=== PATIENT | female | born 1950 | race Caucasian/White ===

== ENCOUNTER 2017-07-04 21:55 | Inpatient (IN) | payer MEDICARE, OTHER ==
[~2017-07-04] VITALS: Ht 154.9 cm; Wt 100.2 kg
--- NOTE | 2017-07-04 23:10 | NUR ---
TO BED 2 A 67YO FEMALE PT JUAN C FROM [facility] PT C/O WEAKNESS AND DIZZYNESS X 1 DAY. UPON ARRIVAL, PATIENT IS AAOX3, NAD NOTED. VSS. BREATHING EVEN AND UNLABORED. NONDIAPHORETIC. GOWNED. COMFORT MEASURES RENDERED.
[2017-07-04 23:44] LABS: EOSINOPHILS % (AUTO) 0.2 % (0.0-6.0); HEMATOCRIT 42 % (33-45); HEMOGLOBIN 13.7 g/dL (11.5-14.8); LYMPHOCYTES # (AUTO) 0.7 /CMM (0.8-4.8); LYMPHOCYTES % (AUTO) 2.8 % (20.0-44.0); MEAN CORPUSCULAR HEMOGLOBIN 29 PG (26.0-33.0); MEAN CORPUSCULAR HGB CONC 33 g/dl (31.0-36.0); MEAN CORPUSCULAR VOLUME 89 fL (82-100); MONOCYTES # (AUTO) 2.7 /CMM (0.1-1.30); MONOCYTES % (AUTO) 10.5 % (2.0-12.0); NEUTROPHILS # (AUTO) 21.9 /CMM (1.8-8.9); NEUTROPHILS % (AUTO) 86.5 % (43.0-81.0); PLATELET COUNT (AUTO) 86 /CMM (150-450); RDW COEFFICIENT OF VARIATION 16.8 (11.5-15.0); RED BLOOD CELL COUNT(AUTO) 4.66 MIL/uL (4.0-5.2); WHITE BLOOD COUNT (AUTO) 25.3 K/uL (4.3-11.0)
[2017-07-04 23:57] LABS: ALANINE AMINOTRANSFERASE 38 U/L (12-78); ALBUMIN 2.4 g/dL (3.4-5.0); ALKALINE PHOSPHATASE 109 U/L (46-116); ASPARTATE AMINOTRANSFERASE 21 U/L (15-37); BILIRUBIN,DIRECT 0.1 mg/dL (0.0-0.2); BILIRUBIN,TOTAL 0.6 mg/dL (0.2-1.0); CALCIUM, SERUM 8.9 mg/dL (8.5-10.1); CARBON DIOXIDE 26 mmol/L (21-32); CHLORIDE 100 mmol/L (98-107); CREATININE 0.5 mg/dL (0.6-1.3); GLUCOSE 251 mg/dL (74-106); LIPASE 75 U/L (73-393); POTASSIUM 3.9 mmol/L (3.5-5.1); SODIUM SERUM 133 mmol/L (136-145); TOTAL PROTEIN, SERUM 5.8 g/dL (6.4-8.2); UREA NITROGEN, BLOOD 21 mg/dL (7-18)
[2017-07-05] MEDS ORDERED: MORPHINE SULFATE INJ 2 MG/ML DISP.SYRIN IV ONE
[2017-07-05 00:13] LABS: BAND % (MANUAL) 3 % (0.0-5.0); LYMPHOCYTES % (MANUAL) 5 % (16-48); MONOCYTES % (MANUAL) 5 % (0-11.0); NEUTROPHILS % (MANUAL) 87 (42-76)
[2017-07-05 00:21] LABS: TROPONIN I < 0.017 ng/mL (0.00-0.056)
[2017-07-05 01:00] LABS: INR 0.85 (0.87-1.13); PROTHROMBIN TIME 8.8 SECS (9.5-12.7)
[2017-07-05 01:00] LABS: APPEARANCE,URINE CLEAR (CLEAR); BILIRUBIN,URINE NEGATIVE (NEGATIVE); BLOOD, URINE NEGATIVE Ery/uL (NEGATIVE); COLOR,URINE YELLOW (YELLOW); KETONES,URINE TRACE (NEGATIVE); LEUKOCYTE ESTERASE ,URINE 2+ (NEGATIVE); NITRITE, URINE NEGATIVE (NEGATIVE); PROTEIN,URINE TRACE mg/dl (NEGATIVE); UGLUCOSE NEGATIVE (NEGATIVE)
[2017-07-05] MEDS ORDERED: CEFTRIAXONE 1GM BAG (ER ONLY) 1 GM/50 ML PIGGYBACK IV ONE (01:00)
[2017-07-05] MEDS ORDERED: MORPHINE SULFATE INJ 10 MG/ML DISP.SYRIN ONE (01:02)
[2017-07-05] MEDS ORDERED: CEFTRIAXONE 1GM BAG (ER ONLY) 50 ML IV ONE (01:02)
[2017-07-05 01:26] LABS: BACTERIA,URINE None seen /HPF (None Seen); RBC,URINE NONE SEEN /HPF (0-2); SQUAMOUS EPITHELIAL CELL,UR Few /HPF (None Seen)
[2017-07-05] MEDS ORDERED: IV NS 0.9% 1,000 ML BAG IV ONE (01:30)
--- NOTE | 2017-07-05 01:30 | NUR ---
STARTED A SALINE LOCK ON THE LEFT WRIST G22.
[2017-07-05 01:46] LABS: ALBUMIN 2.4 g/dL (3.4-5.0); BILIRUBIN,DIRECT 0.1 mg/dL (0.0-0.2); BILIRUBIN,TOTAL 0.5 mg/dL (0.2-1.0); TOTAL PROTEIN, SERUM 5.7 g/dL (6.4-8.2)
--- NOTE | 2017-07-05 02:07 | NUR ---
Report given to Jessica for tele admisison and yandel.
--- NOTE | 2017-07-05 02:22 | NUR ---
Transferred patient to [facility] floor no incident noted.
[2017-07-05 02:25] VITALS: BP 115/70
[2017-07-05 02:30] VITALS: BP 115/70
--- NOTE | 2017-07-05 02:30 | NUR ---
RN NOTES 0225 NEW ADMISSION FROM ER, TRANSPORTED VIA GURNEY, ACCOMPANIED BY RN, ALERT AND COHERENTX4,ON ROOM AIR,ORIENTED TO UNIT AND STAFF,FALL,SAFETY AND ASPIRATION PRECAUTION OBSERVED, BED BATH RENDERED IMMEDIATELY, BODY ASSESSMENT DONE, MULTIPLE SKIN DISCOLORATION AND REDNESS NOTED ON THE FRONTAL AND BACK AREA, UNDER RIGHT AND LEFT BREAST, RIGHT AND LEFT INGUINAL AREA,DISCOLORATION ON THE MIDBACK, PER PATIENT SHE HAD FALL THE OTHER DAY WAS BROUGHT TO [facility] AND SEND BACK TO [facility],PATIENT HAD DIZZINESS AND WEAKNESSX1 DAY AND BROUGHT TO [facility],IVF OF NS AT 60 ML/HR ONGOING IN THE LEFT WRIST G-22; NO BP AND BLOOD EXTRACTION ON THE RIGHT ARM.MEDICATION RECON DONE,KEPT ON CLOSE WATCH.BED LOW AND LOCKED, CALL LIGHT WITHIN EASY REACH.
[2017-07-05] MEDS ORDERED: ACETAMINOPHEN 325 MG TABLET PO PRN (03:30)
[2017-07-05] MEDS ORDERED: IV NS 0.9% 1,000 ML BAG IV PRN (03:30)
[2017-07-05] MEDS ORDERED: DEXTROSE 50%-WATER 50 ML DISP.SYRIN IV PRN (03:30)
[2017-07-05] MEDS ORDERED: ENOXAPARIN SODIUM 40 MG/0.4 ML DISP.SYRIN SQ SCH ×2 (03:30→08:32)
[2017-07-05] MEDS ORDERED: HYDROCODONE/APAP 5/325MG 1 EACH TABLET PO PRN (03:30)
--- NOTE | 2017-07-05 03:30 | NUR ---
RN NOTES: PLATELET=86,CHARGE NURSE NOTIFIED,LOVENOX NOT GIVEN WILL FOLLOW UP WITH MD.
[2017-07-05] MEDS ORDERED: VENTOLIN INH (03:57)
[2017-07-05] MEDS ORDERED: BYSTOLIC PO (03:57)
[2017-07-05] MEDS ORDERED: FISH OIL PO (03:57)
[2017-07-05] MEDS ORDERED: HYDROCODONE/APAP 5/325MG 1 EACH TABLET ONE (06:16)
[2017-07-05] MEDS: HYDROCODONE/APAP 5/325MG 1 EACH TABLET PO PRN ×2 (06:19→17:44)
--- NOTE | 2017-07-05 06:24 | NUR ---
RN NOTES: ABLE TO SLEEP AT SHRT INTERVAL, AWAKE, DIAPER CHANGE, COMPLAINED OF HEADACHE 7/10. NON PHARMACOLOGIC INTERVENTION RENDERED, WARM BLANKET GIVEN, DIM LIGHT, PRN PAIN MEDICATION GIVEN PER REQUEST.WILL CONTINUE TO MONITOR.
[2017-07-05] MEDS: BLOOD SUGAR DIAGNOSTIC 1 EACH STRIP IN SCH ×4 (06:27→21:54)
--- NOTE | 2017-07-05 07:00 | NUR ---
RN NOTES: ASLEEP AT SHORT INTERVALS, ENDORSED TO NEXT SHIFT FOR CONTINUITY OF CARE.
[2017-07-05 08:00] VITALS: BP 103/74
--- NOTE | 2017-07-05 08:06 | NUR ---
MS RN NOTES RECEIVED PATIENT IN BED, AWAKE. A/O X3. ON ROOM AIR, TOLERATING WELL. APPEARS COMFORTABLE IN BED, IVF NS INFUSING AT 60ML/HR, TOLERATING WELL. CALL LIGHT WITHIN IN REACH. WILL CONT TO MONITOR.
[2017-07-05] MEDS: METFORMIN 500 MG TABLET PO SCH ×2 (08:27→16:39)
[2017-07-05] MEDS: FOLIC ACID 1 MG TABLET PO SCH (08:28)
[2017-07-05] MEDS: BENZONATATE 100 MG CAPSULE PO SCH ×3 (08:28→16:39)
[2017-07-05] MEDS: ANASTROZOLE 1 MG TABLET PO SCH (08:28)
[2017-07-05] MEDS: ASPIRIN 81 MG TAB.CHEW PO SCH (08:28)
[2017-07-05] MEDS: NATEGLINIDE 60 MG TABLET PO SCH ×3 (08:28→16:39)
[2017-07-05] MEDS: CHOLECALCIFEROL 1,000 UNIT TABLET (VIT D3) PO SCH (08:28)
[2017-07-05] MEDS: FAMOTIDINE (20 MG) 20 MG TABLET PO SCH (08:28)
[2017-07-05] MEDS: AMLODIPINE BESYLATE 10 MG TABLET PO SCH (08:29)
[2017-07-05] MEDS: ASCORBIC ACID 500 MG TABLET PO SCH (08:29)
[2017-07-05] MEDS ORDERED: IV NS 0.9% 1,000 ML IV PRN (08:30)
[2017-07-05] MEDS ORDERED: ALBUTEROL FS 2.5 MG/3 ML VIAL.NEB NEB PRN (09:30)
[2017-07-05] MEDS: VITAMIN E 400 UNIT CAPSULE PO SCH (09:37)
[2017-07-05] MEDS: ENOXAPARIN SODIUM 40 MG/0.4 ML DISP.SYRIN SQ SCH (11:26)
--- NOTE | 2017-07-05 11:32 | NUR ---
NO LABS TODAY. 07/04/[address] MCQUEEN WAS NOTIFIED BY [facility] AND OK TO GIVE LOVENOX DOSE TODAY 07/05/17.
[2017-07-05] MEDS: INSULIN ASPART HUMALOG/NOVOLOG 100 UNIT/ML CARTRIDGE SQ PRN ×3 (12:19→22:06)
--- NOTE | 2017-07-05 14:25 | NUR ---
REDNESS ON SACROCOCCYX AREA, PATIENT IS ABLE TO TURN AND REPOSITION WITH EXTENSIVE ASSIST. SEEN BY DR. MCQUEEN TODAY, INFORMED MD REGARDING REDNESS ON SACROCOCCYX AREA, ORDERED REMEDY ZGUARD TO PROTECT SKIN.
[2017-07-05 16:00] VITALS: BP_SYST 110; BP_DIAS 45; BP_DIAS 85
[2017-07-05] MEDS: Z GUARD REMEDY 2 OZ OINT TP SCH (16:43)
--- NOTE | 2017-07-05 18:05 | NUR ---
MS RN CLOSING NOTES PATIENT SITTING UP IN BED, HAS GOOD APPETITE, CONSUMED 100% OF HER MEAL. ON ANTIBIOTIC WITH NO ADVERSE SIDE EFFECT, AFEBRILE. C/O LOWER ABDOMINAL PAIN /, MEDICATED WITH NORCO 5/325MG 1 TAB PO PRN, EFFECTIVE. TURN AND REPOSITION IN BED. CONT HOSP. CALL LIGHT WITHIN REACH. WILL ENDORSE TO AUTO HEATER MECHANIC RN FOR CONTINUITY OF CARE.
--- NOTE | 2017-07-05 19:05 | NUR ---
MS RN OPENING NOTES: RECEIVED PT SITTING UP IN BED COMFORTABLY. NO SOB NOTED. NO S/S OF DISTRESS NOTED AT THIS TIME. PT HAS IV ON L HAND 22G AND IS BEING INFUSED WITH NS AT 60ML/HR. CALL LIGHT WITHIN PT'S REACH. BED KEPT IN LOW, LOCKED POSITION, AND SIDE RAILS X 2UP. WILL CONTINUE TO MONITOR PT.
[2017-07-05 20:00] VITALS: BP 123/62
[2017-07-05] MEDS: INSULIN DETEMIR 100 UNIT/ML CARTRIDGE SQ SCH (20:16)
[2017-07-05] MEDS: ATORVASTATIN 10 MG TABLET PO SCH (21:54)
[2017-07-05] MEDS: MONTELUKAST SODIUM (10MG) 10 MG TABLET PO SCH (21:54)
[2017-07-05] MEDS: CEFTRIAXONE 1 G in IV D5W 50 ML IV SCH (22:10)
[2017-07-06] MEDS: BLOOD SUGAR DIAGNOSTIC 1 EACH STRIP IN SCH ×4 (06:06→21:52)
[2017-07-06] MEDS: INSULIN ASPART HUMALOG/NOVOLOG 100 UNIT/ML CARTRIDGE SQ PRN ×4 (06:51→22:04)
--- NOTE | 2017-07-06 06:52 | NUR ---
MS RN NOTES: BLOOD SUGAR THIS AM WAS 119. NO INSULIN WAS GIVEN. WILL CONTINUE TO MONITOR PT.
--- NOTE | 2017-07-06 07:25 | NUR ---
MS RN CLOSING NOTES: ALL NEEDS WERE ATTENDED AND ANTICIPATED FOR. PT IS SLEEPING IN BED COMFORTABLY. NO SOB NOTED. NO S/S OF DISTRESS NOTED AT THIS TIME. PT HAS IV ON L HAND 22G AND IS BEING INFUSED WITH NS AT 60ML/HR. CALL LIGHT WITHIN PT'S REACH. BED KEPT IN LOW, LOCKED POSITION, AND SIDE RAILS X 2UP. ENDORSED TO AM NURSE FOR PHUONG.
--- NOTE | 2017-07-06 07:30 | NUR ---
MS RN NOTES RECEIVED PATIENT IN BED, AWAKE. A/O X3, APPEARS ANXIOUS. ON ROOM AIR, BREATHING EVEN AND NON LABORED, NO SOB. IV IN LEFT WRIST PATENT AND INTACT, IVF NS INFUSING AT 60ML/HR, TOLERATING WELL. CALL LIGHT WITHIN IN REACH. WILL CONT TO MONITOR.
[2017-07-06 08:00] VITALS: BP 123/63
[2017-07-06] MEDS ORDERED: CHOL10002 PO (08:19)
[2017-07-06] MEDS ORDERED: METF500T4 PO (08:19)
[2017-07-06] MEDS ORDERED: ACET-868 PO (08:19)
[2017-07-06] MEDS ORDERED: [UNRECOGNIZED DRUG - CODE] PO (08:19)
[2017-07-06] MEDS ORDERED: ASCO500T9 PO (08:19)
[2017-07-06] MEDS ORDERED: MONT10TA22 PO (08:19)
[2017-07-06] MEDS ORDERED: NEBI5TAB8 PO (08:19)
[2017-07-06] MEDS ORDERED: HYDR-552 PO (08:19)
[2017-07-06] MEDS ORDERED: ALBU18HF2 INH (08:19)
[2017-07-06] MEDS ORDERED: AMLO10TA2 PO (08:19)
[2017-07-06] MEDS ORDERED: NATE60TA4 PO (08:19)
[2017-07-06] MEDS ORDERED: FAMO20TA8 PO (08:19)
[2017-07-06] MEDS ORDERED: OMEG1CAP PO (08:19)
[2017-07-06] MEDS ORDERED: FOLI1TAB16 PO (08:19)
[2017-07-06] MEDS ORDERED: BENZ-20 PO (08:19)
[2017-07-06] MEDS ORDERED: ASPI-991 PO (08:19)
[2017-07-06] MEDS ORDERED: ANAS1TAB8 PO (08:19)
[2017-07-06 08:58] LABS: EOSINOPHILS % (AUTO) 0.2 % (0.0-6.0); HEMATOCRIT 39 % (33-45); HEMOGLOBIN 12.8 g/dL (11.5-14.8); LYMPHOCYTES # (AUTO) 0.4 /CMM (0.8-4.8); LYMPHOCYTES % (AUTO) 2.5 % (20.0-44.0); MEAN CORPUSCULAR HEMOGLOBIN 30 PG (26.0-33.0); MEAN CORPUSCULAR HGB CONC 33 g/dl (31.0-36.0); MEAN CORPUSCULAR VOLUME 90 fL (82-100); MONOCYTES # (AUTO) 0.1 /CMM (0.1-1.30); MONOCYTES % (AUTO) 0.7 % (2.0-12.0); NEUTROPHILS # (AUTO) 14.9 /CMM (1.8-8.9); NEUTROPHILS % (AUTO) 96.6 % (43.0-81.0); PLATELET COUNT (AUTO) 88 /CMM (150-450); RDW COEFFICIENT OF VARIATION 17.2 (11.5-15.0); WHITE BLOOD COUNT (AUTO) 15.4 K/uL (4.3-11.0)
[2017-07-06] MEDS ORDERED: NEBIVOLOL 5 MG PO SCH (09:00)
[2017-07-06 09:32] LABS: CALCIUM, SERUM 8.3 mg/dL (8.5-10.1); CREATININE 0.4 mg/dL (0.6-1.3); POTASSIUM 3.7 mmol/L (3.5-5.1)
[2017-07-06] MEDS: CHOLECALCIFEROL 1,000 UNIT TABLET (VIT D3) PO SCH (09:48)
[2017-07-06] MEDS: VITAMIN E 400 UNIT CAPSULE PO SCH (09:48)
[2017-07-06] MEDS: ASCORBIC ACID 500 MG TABLET PO SCH (09:48)
[2017-07-06] MEDS: ANASTROZOLE 1 MG TABLET PO SCH (09:48)
[2017-07-06] MEDS: METFORMIN 500 MG TABLET PO SCH ×2 (09:48→17:38)
[2017-07-06] MEDS: AMLODIPINE BESYLATE 10 MG TABLET PO SCH (09:49)
[2017-07-06] MEDS: FOLIC ACID 1 MG TABLET PO SCH (09:49)
[2017-07-06] MEDS: BENZONATATE 100 MG CAPSULE PO SCH ×3 (09:50→17:38)
[2017-07-06] MEDS: FAMOTIDINE (20 MG) 20 MG TABLET PO SCH (09:50)
[2017-07-06] MEDS: ASPIRIN 81 MG TAB.CHEW PO SCH (09:51)
[2017-07-06] MEDS: INSULIN DETEMIR 100 UNIT/ML CARTRIDGE SQ SCH ×2 (10:04→22:03)
[2017-07-06] MEDS: ENOXAPARIN SODIUM 40 MG/0.4 ML DISP.SYRIN SQ SCH (10:05)
[2017-07-06 10:08] LABS: LYMPHOCYTES % (MANUAL) 3 % (16-48); MONOCYTES % (MANUAL) 4 % (0-11.0); NEUTROPHILS % (MANUAL) 93 (42-76)
[2017-07-06] MEDS: Z GUARD REMEDY 2 OZ OINT TP SCH (10:10)
[2017-07-06] MEDS ORDERED: DEXA4TAB2 PO ×2 (11:42)
[2017-07-06] MEDS ORDERED: DEXA1TAB2 PO ×3 (11:42)
--- NOTE | 2017-07-06 12:55 | NUR ---
PER PATIENT SHE IS TAKING STEROIDS MEDICATION AT THE FACILITY. CALLED SPOKE TO DR. MCQUEEN ORDERED TO CONTINUE DECADRON TAPERING DOSE FROM PREVIOUS ORDERS AND CHANGE BYSTOLIC TO CARVEDILOL 6.25MG PO BID, NOTED AND ACKNOWLEDGED. PATIENT MADE AWARE.
[2017-07-06] MEDS: DEXAMETHASONE 4 MG TABLET PO SCH ×2 (14:11→17:38)
--- NOTE | 2017-07-06 14:42 | NUR ---
PATIENT REPORTED STOMACH UPSET, NO C/O NAUSEA OR VOMITING. NOTIFIED DR. MCQUEEN ORDERED PROTONIX 40MG DAILY NOTED AND ACKNOWLEDGED.
[2017-07-06] MEDS: PANTOPRAZOLE 40 MG TABLET.DR PO SCH (15:29)
[2017-07-06] MEDS ORDERED: BENZONATATE 100 MG CAPSULE PO PRN (15:30)
[2017-07-06] MEDS ORDERED: ACETAMINOPHEN 325 MG TABLET PO PRN (15:30)
[2017-07-06] MEDS ORDERED: HYDROCODONE/APAP 5/325MG 1 EACH TABLET PO PRN (15:30)
[2017-07-06] MEDS: HYDROCODONE/APAP 5/325MG 1 EACH TABLET PO PRN (15:32)
[2017-07-06 16:00] VITALS: BP 112/60
[2017-07-06] MEDS ORDERED: METFORMIN 500 MG TABLET PO SCH (17:00)
[2017-07-06] MEDS ORDERED: FAMOTIDINE (20 MG) 20 MG TABLET PO SCH (17:00)
[2017-07-06] MEDS ORDERED: ALBUTEROL SULFATE 8 GM HFA.AER.AD NEB SCH (17:00)
--- NOTE | 2017-07-06 18:41 | NUR ---
MS RN CLOSING NOTES PATIENT IN BED, A/O X4. IVF WAS STOP TODAY ORDERED. IV IN LEFT WRIST G22 NOTED LEAKING, REMOVED AND COVERED WITH GAUZE. WILL RE INSERT IV. TURN AND REPOSITION IN BED, BLOOD SUGAR MONITORED. LAB IN AM ORDERED. CONT HOSP. CALL LIGHT WITHIN REACH. WILL ENDORSE TO STAFF RADIOGRAPHER RN FOR CONTINUITY OF CARE.
--- NOTE | 2017-07-06 19:40 | NUR ---
MS RN NOTE: PATIENT RESTING IN BED, NO ACUTE DISTRESS NOTED. BREATHING EVEN AND UNLABORED, NO SOB NOTED. IV TO LEFT HAND LEAKING AND REMOVED, TO START A NEW IV. NO S/S OF HYPER/HYPOGLYCEMIA NOTED. BED LOCKED AND IN LOWEST POSITION, CALL LIGHT IN REACH. WILL CONTINUE TO MONITOR.
[2017-07-06 20:00] VITALS: BP 113/61
[2017-07-06] MEDS: MONTELUKAST SODIUM (10MG) 10 MG TABLET PO SCH (21:51)
[2017-07-06] MEDS: ATORVASTATIN 10 MG TABLET PO SCH (21:51)
[2017-07-06] MEDS: CARVEDILOL 6.25 MG TABLET PO SCH (21:51)
[2017-07-06] MEDS ORDERED: MONTELUKAST SODIUM (10MG) 10 MG TABLET PO SCH (22:00)
--- NOTE | 2017-07-06 23:00 | NUR ---
MS RN NOTE: NEW IV STARTED TO LFA #20 WITH GOOD BLOOD RETURN, WILL CONTINUE TO MONITOR.
[2017-07-06] MEDS: CEFTRIAXONE 1 G in IV D5W 50 ML IV SCH (23:27)
--- NOTE | 2017-07-07 06:10 | NUR ---
MS RN NOTE: PATIENT RESTING IN BED, NO ACUTE DISTRESS NOTED. BREATHING EVEN AND UNLABORED, NO SOB NOTED. IV TO LFA IN PLACE. NO S/S OF HYPER/HYPOGLYCEMIA NOTED. BED LOCKED AND IN LOWEST POSITION, CALL LIGHT IN REACH. WILL ENDORSE TO DAY NURSE TO CONTINUE WITH PLAN OF CARE.
[2017-07-07] MEDS: BLOOD SUGAR DIAGNOSTIC 1 EACH STRIP IN SCH ×4 (07:13→22:33)
[2017-07-07] MEDS: INSULIN ASPART HUMALOG/NOVOLOG 100 UNIT/ML CARTRIDGE SQ PRN ×4 (07:14→22:32)
--- NOTE | 2017-07-07 07:30 | NUR ---
MS RN NOTES RECEIVED PATIENT IN BED, AWAKE. A/OX 4. ON ROOM AIR, TOLERATING WELL, NO SOB. DIAPER CHANGED, KEPT CLEAN AND DRY, MADE COMFORTABLE IN BED. PLACE CALL LIGHT WITHIN REACH. WILL CONT TO MONITOR.
[2017-07-07 08:00] VITALS: BP 128/69
[2017-07-07 08:14] LABS: EOSINOPHILS % (AUTO) 0.1 % (0.0-6.0); HEMATOCRIT 41 % (33-45); HEMOGLOBIN 13.6 g/dL (11.5-14.8); LYMPHOCYTES # (AUTO) 0.7 /CMM (0.8-4.8); LYMPHOCYTES % (AUTO) 5.2 % (20.0-44.0); MEAN CORPUSCULAR HEMOGLOBIN 30 PG (26.0-33.0); MEAN CORPUSCULAR HGB CONC 33 g/dl (31.0-36.0); MEAN CORPUSCULAR VOLUME 90 fL (82-100); MONOCYTES # (AUTO) 0.1 /CMM (0.1-1.30); MONOCYTES % (AUTO) 0.9 % (2.0-12.0); NEUTROPHILS # (AUTO) 13.3 /CMM (1.8-8.9); NEUTROPHILS % (AUTO) 93.8 % (43.0-81.0); PLATELET COUNT (AUTO) 109 /CMM (150-450); RDW COEFFICIENT OF VARIATION 16.5 (11.5-15.0); RED BLOOD CELL COUNT(AUTO) 4.56 MIL/uL (4.0-5.2); WHITE BLOOD COUNT (AUTO) 14.1 K/uL (4.3-11.0)
[2017-07-07] MEDS ORDERED: ASCORBIC ACID 500 MG TABLET PO SCH (09:00)
[2017-07-07] MEDS ORDERED: FOLIC ACID 1 MG TABLET PO SCH (09:00)
[2017-07-07] MEDS ORDERED: AMLODIPINE BESYLATE 10 MG TABLET PO SCH (09:00)
[2017-07-07] MEDS ORDERED: ASPIRIN EC 81 MG TABLET.DR PO SCH (09:00)
[2017-07-07] MEDS ORDERED: ANASTROZOLE 1 MG TABLET PO SCH (09:00)
[2017-07-07] MEDS ORDERED: VITAMIN E 400 UNIT CAPSULE PO SCH (09:00)
[2017-07-07] MEDS ORDERED: CHOLECALCIFEROL 1,000 UNIT TABLET (VIT D3) PO SCH (09:00)
[2017-07-07] MEDS: FOLIC ACID 1 MG TABLET PO SCH (09:26)
[2017-07-07] MEDS: ASPIRIN 81 MG TAB.CHEW PO SCH (09:26)
[2017-07-07] MEDS: CHOLECALCIFEROL 1,000 UNIT TABLET (VIT D3) PO SCH (09:26)
[2017-07-07] MEDS: ANASTROZOLE 1 MG TABLET PO SCH (09:26)
[2017-07-07] MEDS: FAMOTIDINE (20 MG) 20 MG TABLET PO SCH (09:26)
[2017-07-07] MEDS: PANTOPRAZOLE 40 MG TABLET.DR PO SCH (09:26)
[2017-07-07] MEDS: METFORMIN 500 MG TABLET PO SCH ×2 (09:26→17:39)
[2017-07-07] MEDS: ASCORBIC ACID 500 MG TABLET PO SCH (09:26)
[2017-07-07] MEDS: CARVEDILOL 6.25 MG TABLET PO SCH ×3 (09:27→22:42)
[2017-07-07] MEDS: BENZONATATE 100 MG CAPSULE PO SCH ×3 (09:27→17:39)
[2017-07-07] MEDS: DEXAMETHASONE 4 MG TABLET PO SCH (09:27)
[2017-07-07] MEDS: VITAMIN E 400 UNIT CAPSULE PO SCH (09:29)
[2017-07-07] MEDS: Z GUARD REMEDY 2 OZ OINT TP SCH (09:31)
[2017-07-07] MEDS: INSULIN DETEMIR 100 UNIT/ML CARTRIDGE SQ SCH ×2 (09:35→22:31)
--- NOTE | 2017-07-07 10:11 | NUR ---
PATIENT REPORTED CONSTIPATION, INFORMED DR. MCQUEEN, ORDERED SENNA 8.6MG AT BEDTIME AND DULCOLAX SUPP DAILY PRN, PATIENT MADE AWARE.
[2017-07-07] MEDS: ENOXAPARIN SODIUM 40 MG/0.4 ML DISP.SYRIN SQ SCH (10:27)
[2017-07-07] MEDS ORDERED: BISACODYL SUPP (10 MG) 10 MG/SUPP.RECT SUPP.RECT RC PRN (10:30)
--- NOTE | 2017-07-07 10:37 | NUR ---
WOUND CARE CONSULT: PT PRESENTS WITH ABILITY TO ASSIST WITH TURNING AND REPOSITIONING IN BED. PT USING BEDPAN. BRUISES NOTED AND RT 2ND TOE TINY DRY SCAB, PRESENT ON ADMISSION. CURRENT RONI SCORE IS 14. WILL SEE PRN. ALL SKIN PROTECTION MEASURES IN PLACE INCLUDING ISOFLEX LOW AIRLOSS BED. MD IN AGREEMENT WITH PLAN OF CARE.
--- NOTE | 2017-07-07 13:03 | NUR ---
PATIENT AMBULATE WITH PT TODAY, WALK 30 FEET PER PT. PROVIDED BEDSIDE COMMODE, HAD BOWEL MOVEMENT, LARGE AMOUNT AND FORMED, SOFT. DULCOLAX SUPP. EFFECTIVE.
--- NOTE | 2017-07-07 14:55 | NUR ---
PER [facility]INCE/[facility] REC. PROTAT, MTV, AND VIT C DAILY, PATIENT IS ON MALNUTRITION ALERT. NOTIFIED DR. MCQUEEN, AWAITING FOR ORDERS.
[2017-07-07 16:00] VITALS: BP 114/62
[2017-07-07] MEDS: DEXAMETHASONE 1 MG TABLET PO SCH (17:52)
--- NOTE | 2017-07-07 18:44 | NUR ---
MS RN CLOSING NOTES PATIENT IN BED, SITTING UP. CONSUMED >75% OF HER MEAL. RECEIVED PHONE CALL FROM DR. MCQUEEN, DISCUSSED RD RECOMMENDATION WITH MD, TO ADD MVI, VIT C, PROSTAT DAILY TO MEET INCREASE NEEDS HIGH BMI. DR. MCQUEEN DECLINED RD RECOMMENDATIONS AND NO NEW ORDERS AT THIS TIME, CHARGE NURSE INFORMED. IV IN LFA G20 PATENT AND INTACT, FLUSHES WELL. HAD BOWEL MOVEMENT TODAY LARGE AMOUNT, WITH BEDSIDE COMMODE PROVIDED. KEPT CLEAN, DRY AND COMFORTABLE IN BED. PLACE CALL LIGHT WITH IN REACH. CONT HOSP PER MD. WILL ENDORSE TO NIGHT RN FOR PHUONG.
[2017-07-07 20:00] VITALS: BP 119/67
[2017-07-07] MEDS: ATORVASTATIN 10 MG TABLET PO SCH (22:09)
[2017-07-07] MEDS: MONTELUKAST SODIUM (10MG) 10 MG TABLET PO SCH (22:09)
[2017-07-07] MEDS: SENNOSIDES 8.6 MG TABLET PO SCH (22:09)
[2017-07-07] MEDS: CEFTRIAXONE 1 G in IV D5W 50 ML IV SCH (22:11)
--- NOTE | 2017-07-08 05:16 | NUR ---
RN NOTES No significant change in condition during shit. No change in LOC. No c/o pain or discomfort. Accucheck done as ordered, no s/s of hypo/hyperglycemia. Due meds given as ordered, all needs attended. Turned and repositioned as scheduled. Will continue to monitor.
[2017-07-08] MEDS: BLOOD SUGAR DIAGNOSTIC 1 EACH STRIP IN SCH ×4 (06:37→22:16)
[2017-07-08] MEDS: INSULIN ASPART HUMALOG/NOVOLOG 100 UNIT/ML CARTRIDGE SQ PRN ×3 (06:39→22:07)
--- NOTE | 2017-07-08 07:30 | NUR ---
RN MS NOTES PT IN BED, AWAKE, ALERT AND ORIENTED, BREATHING PATTERN NORMAL AND NON LABORED, NO COMPLAINT OF PAIN OR ANY DISCOMFORT, RIGHT ARM PRECAUTION OBSERVED, CALL LIGHT WITHIN REACH, ASSISTED WITH NEEDS.
[2017-07-08 08:00] VITALS: BP 145/68
[2017-07-08] MEDS: ASCORBIC ACID 500 MG TABLET PO SCH (08:36)
[2017-07-08] MEDS: FAMOTIDINE (20 MG) 20 MG TABLET PO SCH (08:36)
[2017-07-08] MEDS: CHOLECALCIFEROL 1,000 UNIT TABLET (VIT D3) PO SCH (08:36)
[2017-07-08] MEDS: DEXAMETHASONE 4 MG TABLET PO SCH (08:36)
[2017-07-08] MEDS: METFORMIN 500 MG TABLET PO SCH ×2 (08:36→16:41)
[2017-07-08] MEDS: PANTOPRAZOLE 40 MG TABLET.DR PO SCH (08:37)
[2017-07-08] MEDS: BENZONATATE 100 MG CAPSULE PO SCH ×3 (08:37→16:41)
[2017-07-08] MEDS: CARVEDILOL 6.25 MG TABLET PO SCH ×2 (08:37→22:04)
[2017-07-08] MEDS: ASPIRIN 81 MG TAB.CHEW PO SCH (08:38)
[2017-07-08] MEDS: FOLIC ACID 1 MG TABLET PO SCH (08:38)
[2017-07-08] MEDS: ENOXAPARIN SODIUM 40 MG/0.4 ML DISP.SYRIN SQ SCH (08:46)
[2017-07-08] MEDS: INSULIN DETEMIR 100 UNIT/ML CARTRIDGE SQ SCH ×2 (08:47→22:06)
[2017-07-08] MEDS: Z GUARD REMEDY 2 OZ OINT TP SCH (08:51)
[2017-07-08] MEDS: VITAMIN E 400 UNIT CAPSULE PO SCH (08:53)
[2017-07-08] MEDS: ANASTROZOLE 1 MG TABLET PO SCH (09:00)
--- NOTE | 2017-07-08 12:00 | NUR ---
RN MS NOTES PT REFUSED INSULIN ADMINISTRATION.
--- NOTE | 2017-07-08 13:00 | NUR ---
RN MS NOTES PT IN BED, RESTING, NO COMPLAINT OF PAIN OR ANY DISCOMFORT, RESPIRATIONS NORMAL AND NOT LABORED, ASSISTED WITH REPOSITIONING AND ADL'S, SEEN BY PHYSICAL THERAPIST, ABLE TO WALK WITH ASSISTANCE WITH A WALKER, NEEDS ATTENDED.
[2017-07-08 16:00] VITALS: BP 139/79
[2017-07-08] MEDS: DEXAMETHASONE 1 MG TABLET PO SCH (17:34)
--- NOTE | 2017-07-08 18:30 | NUR ---
RN MS NOTES PT IN BED, AWAKE, ALERT AND ORIENTED, NO COMPLAINT AT THIS TIME, ASSISTED WITH DINNER, BLOOD SUGAR CHECKED, INSULIN GIVEN ORDERED, PM MEDS GIVEN, ALL NEEDS ATTENDED.
[2017-07-08] MEDS: METRONIDAZOLE 500MG/ NS 100ML 500 MG in PREMIX 1 EA IV SCH (19:43)
--- NOTE | 2017-07-08 19:57 | NUR ---
MS/RN RECEIVE PATIENT AWAKE, ALERT, ORIENTED, FEELS WEAK "i JUST WANT TO REST", THE PATIENT STATED, NO C/O PAIN, NO DISTRESS NOTED. PATIENT REFUSED TO BE TURNED AT THIS TIME. WILL MONITOR.
[2017-07-08 20:00] VITALS: BP 117/66
[2017-07-08] MEDS: MONTELUKAST SODIUM (10MG) 10 MG TABLET PO SCH (22:03)
[2017-07-08] MEDS: ATORVASTATIN 10 MG TABLET PO SCH (22:03)
[2017-07-08] MEDS: SENNOSIDES 8.6 MG TABLET PO SCH (22:04)
[2017-07-08] MEDS: CEFTRIAXONE 1 G in IV D5W 50 ML IV SCH (23:09)
[2017-07-09] MEDS: METRONIDAZOLE 500MG/ NS 100ML 500 MG in PREMIX 1 EA IV SCH ×2 (05:00→13:32)
[2017-07-09] MEDS: INSULIN ASPART HUMALOG/NOVOLOG 100 UNIT/ML CARTRIDGE SQ PRN ×2 (06:34→12:34)
--- NOTE | 2017-07-09 06:43 | NUR ---
MS/RN PATIENT IS AWAKE, ALERT, ORIENTED, COMFORTABLE, NO CHANGE IN CONDITION, HAD AN ON AND OFF SLEEP THE WHOLE SHIFT. ALL NEEDS ATTENDED AT THIS TIME, WILL CONTINUE TO MONITOR.
--- NOTE | 2017-07-09 07:26 | NUR ---
MS RN OPENING NOTES PATIENT IS SLEEPING IN BED IN NO APPARENT DISTRESS. BED IS LOCKED AND LOWERED. BEDSIDE RAILS ARE UP X2. CALL LIGHT IS WITHIN REACH. WILL CONTINUE TO MONITOR.
[2017-07-09] MEDS: BLOOD SUGAR DIAGNOSTIC 1 EACH STRIP IN SCH ×3 (07:30→17:18)
[2017-07-09 08:00] VITALS: BP 121/68
[2017-07-09] MEDS: ENOXAPARIN SODIUM 40 MG/0.4 ML DISP.SYRIN SQ SCH (09:00)
[2017-07-09] MEDS: FOLIC ACID 1 MG TABLET PO SCH (09:01)
[2017-07-09] MEDS: VITAMIN E 400 UNIT CAPSULE PO SCH (09:01)
[2017-07-09] MEDS: METFORMIN 500 MG TABLET PO SCH ×2 (09:01→17:18)
[2017-07-09] MEDS: ASCORBIC ACID 500 MG TABLET PO SCH (09:01)
[2017-07-09] MEDS: ASPIRIN 81 MG TAB.CHEW PO SCH (09:01)
[2017-07-09] MEDS: PANTOPRAZOLE 40 MG TABLET.DR PO SCH (09:02)
[2017-07-09] MEDS: BENZONATATE 100 MG CAPSULE PO SCH ×3 (09:02→17:18)
[2017-07-09] MEDS: ANASTROZOLE 1 MG TABLET PO SCH (09:02)
[2017-07-09] MEDS: DEXAMETHASONE 4 MG TABLET PO SCH (09:02)
[2017-07-09] MEDS: FAMOTIDINE (20 MG) 20 MG TABLET PO SCH (09:03)
[2017-07-09] MEDS: CHOLECALCIFEROL 1,000 UNIT TABLET (VIT D3) PO SCH (09:03)
[2017-07-09] MEDS: CARVEDILOL 6.25 MG TABLET PO SCH (09:03)
[2017-07-09] MEDS: INSULIN DETEMIR 100 UNIT/ML CARTRIDGE SQ SCH (09:22)
[2017-07-09] MEDS: Z GUARD REMEDY 2 OZ OINT TP SCH (09:23)
[2017-07-09 13:55] LABS: CALCIUM, SERUM 8.6 mg/dL (8.5-10.1); CREATININE 0.5 mg/dL (0.6-1.3); POTASSIUM 3.8 mmol/L (3.5-5.1)
[2017-07-09 16:00] VITALS: BP 134/68
[2017-07-09] MEDS: DEXAMETHASONE 1 MG TABLET PO SCH (17:19)
--- NOTE | 2017-07-09 17:23 | NUR ---
NO INSULIN COVERAGE NEEDED. BLOOD SUGAR 128.
--- NOTE | 2017-07-09 19:00 | NUR ---
MS RN CLOSING NOTES PATIENT IS RESTING IN BED IN NO APPARENT DISTRESS. BED IS LOCKED AND LOWERED. CALL LIGHT IS WITHIN REACH. WILL ENDORSE CARE TO HOSPICE OFFICE COORDINATOR NURSE FOR PHUONG.
--- NOTE | 2017-07-09 19:15 | NUR ---
RN OPENING NOTES RECEIVED REPORT FROM TR[place], NO APPARENT S/S OF PAIN OR DISTRESS. PT HAS A LEFT FOREARM IV, PATENT AND INTACT, SL. SAFETY PRECAUTIONS IN PLACE. BED IN LOW, LOCKED POSITION, 2X SIDERAILS UP. CALL LIGHT WITHIN REACH. WILL CONTINUE TO MONITOR.
--- NOTE | 2017-07-09 19:30 | NUR ---
SPOKE TO [facility] AND GAVE REPORT ON PATIENT BEING DISCHARGED TO THIS FACILITY. Addendum: 07/09/17 at 1951 by TRINIDAD MUSA RN [facility] [phone]
--- NOTE | 2017-07-09 19:45 | NUR ---
PT REFUSED DISCHARGE PICTURE DOCUMENTATION OF WOUNDS (BUTTOCKS, R/L GROIN, R HIP,R/L BREAST FOLD, R ARM, L ARM/HAND, L HEEL, R LOWER EXT). PER ASSESSMENT ONLY REDNESS WAS OBSERVED AT SITES, NO OPEN WOUNDS. EXPLAINED TO PATIENT THAT PER HOSPITAL POLICY DOCUMENTATION OF PATIENT'S WOUNDS ARE DONE ON ADMISSION WELL AT DISCHARGE. PATIENT REFUSED, STATING "THAT IT WAS AN INVASION OF HER PRIVACY."
[2017-07-09 20:00] VITALS: BP 127/69
--- NOTE | 2017-07-09 20:40 | NUR ---
EMT TRANSPORT ARRIVED ON UNIT TO [facility]ORT PT [facility].
--- NOTE | 2017-07-09 20:53 | NUR ---
PT WAS TRANSPORTED OFF THE UNIT VIA GURNEY. PT VITAL SIGNS ARE STABLE. ENSURED PT RECEIVED ALL DISCHARGE PAPERWORK. PT WILL FOLLOW UP WITH DR REID TOMORROW. ALL PATIENT BELONGING WERE GIVEN TO PT AND EMT TRANSPORT. Addendum: 07/10/17 at 0121 by VIANNEY PENNY RN PT WILL FOLLOW UP WITH DR MCQUEEN, NOT DR REID.
[2017-07-09 21:05] LABS: EOSINOPHILS # (AUTO) 0.1 /CMM (0.0-0.7); EOSINOPHILS % (AUTO) 1.4 % (0.0-6.0); HEMATOCRIT 39 % (33-45); HEMOGLOBIN 12.7 g/dL (11.5-14.8); LYMPHOCYTES # (AUTO) 0.3 /CMM (0.8-4.8); LYMPHOCYTES % (AUTO) 3.5 % (20.0-44.0); MEAN CORPUSCULAR HEMOGLOBIN 30 PG (26.0-33.0); MEAN CORPUSCULAR HGB CONC 33 g/dl (31.0-36.0); MEAN CORPUSCULAR VOLUME 90 fL (82-100); MONOCYTES # (AUTO) 0.1 /CMM (0.1-1.30); MONOCYTES % (AUTO) 1.5 % (2.0-12.0); NEUTROPHILS # (AUTO) 7.6 /CMM (1.8-8.9); NEUTROPHILS % (AUTO) 93.6 % (43.0-81.0); PLATELET COUNT (AUTO) 152 /CMM (150-450); RDW COEFFICIENT OF VARIATION 16.6 (11.5-15.0); RED BLOOD CELL COUNT(AUTO) 4.29 MIL/uL (4.0-5.2); WHITE BLOOD COUNT (AUTO) 8.1 K/uL (4.3-11.0)
[2017-07-10] MEDS ORDERED: DEXAMETHASONE 1 MG TABLET PO SCH (09:00)
[2017-07-13] MEDS ORDERED: DEXAMETHASONE 1 MG TABLET PO SCH (18:00)
[2017-07-22] MEDS ORDERED: DEXAMETHASONE 1 MG TABLET PO SCH (09:00)
== END 2017-07-09 20:45 | DRG 871 ==
LOC: ER 22:01 → MED 07-05 02:09
PROVIDERS: ADMIT Internal Medicine; ATTEND Internal Medicine
DX: A41.9 Sepsis, unspecified organism (principal); N17.0 Acute kidney failure with tubular necrosis; D69.59 Other secondary thrombocytopenia; I11.0 Hypertensive heart disease with heart failure; C79.31 Secondary malignant neoplasm of brain; E66.01 Morbid (severe) obesity due to excess calories; I50.9 Heart failure, unspecified; Z68.41 Body mass index [BMI] 40.0-44.9, adult; N39.0 Urinary tract infection, site not specified; J44.9 Chronic obstructive pulmonary disease, unspecified; I25.10 Atherosclerotic heart disease of native coronary artery without angina pectoris; M19.90 Unspecified osteoarthritis, unspecified site; Z79.4 Long term (current) use of insulin; Z92.3 Personal history of irradiation; R53.1 Weakness; C50.919 Malignant neoplasm of unspecified site of unspecified female breast; Z79.899 Other long term (current) drug therapy; Z91.81 History of falling; E11.9 Type 2 diabetes mellitus without complications
CPT/HCPCS: 36415; 71010-TC; 80048-TC; 80076-TC; 81000-TC; 82962-TC; 83605-TC; 83690-TC; 84484-TC; 85025-TC; 85730-TC; 87040-TC; 87081-TC; 87086-TC; 87400; 97110-TC; 97116-TC; 97530-TC; A4216; A4606; J0696; J1650; J1815; J2270; J3490; J7030; J7060; J8540; Z7610